=== PATIENT | female | born 1960 | race Caucasian/White ===

== ENCOUNTER 2021-08-04 16:43 | Emergency (ER) | payer MEDICARE ==
[~2021-08-04 16:43] MED LIST: BENADRYL 25MG C25 MG PO; GLUCOPHAGE500 MG PO; HYDROCHLOROTHIA25 MG PO; MEDROL DOSEPAK 24 MG PO; MEDROL4 MG PO; OMEPRAZOLE20 MG PO; PEPCID20 MG PO; PREDNISONE 50 M50 MG PO; PREDNISONE20 MG PO; PREDNISONE50 MG PO; [UNRECOGNIZED DRUG - SUPPLY]
[2021-08-04] MEDS ORDERED: ROBAXIN 750 MG750 MG PO (18:18)
[2021-08-04] MEDS ORDERED: TORADOL 10 MG T10 MG PO (18:18)
[2021-08-08] MEDS ORDERED: IBUPROFEN600 MG PO (13:02)
[2021-08-08] MEDS ORDERED: PREDNISONE50 MG PO (13:02)
== END 2021-08-04 18:33 | disposition home or self-care (01) ==
LOC: ER1 16:43
DX: S16.1XXA Strain of muscle, fascia and tendon at neck level, initial encounter (principal); E11.9 Type 2 diabetes mellitus without complications; I10 Essential (primary) hypertension; K21.9 Gastro-esophageal reflux disease without esophagitis; Z88.0 Allergy status to penicillin; Z90.710 Acquired absence of both cervix and uterus; X58.XXXA Exposure to other specified factors, initial encounter
CPT/HCPCS: 96372; 99283; J1885